=== PATIENT | female | born 1990 | race Caucasian/White ===

== ENCOUNTER 2016-10-18 19:49 | Emergency (ER) | payer OTHER ==
[2016-10-18 20:00] VITALS: BP 111/70; PULSE 100; TEMP 99; BMI 25.0
[2016-10-18] MEDS ORDERED: OXYCODONE/APAP 5/325MG COMBO TABLET PO ONE (21:26)
[2016-10-18] MEDS ORDERED: OXYCODONE/APAP 5/325MG COMBO TABLET ONE (21:31)
--- NOTE | 2016-10-18 21:54 | PDOC ---
History of Present Illness - General Chief Complaint: Wound Stated Complaint: Abscess Boil Time Seen by Provider: 10/18/16 20:41 History Source: Patient Exam Limitations: No Limitations - History of Present Illness Initial Comments: 10/18/16 21:42 CHIEF COMPLAINT: Recurrent pilonidal abscess HISTORY OF PRESENT ILLNESS: Patient is a 26-year-old female, history of pilonidal abscess presents emergency Department with pain and swelling to gluteal cleft which started yesterday. There is a scar noted to same. Patient states she had area drained several years ago but never followed up with surgery for proper removal. Patient is afebrile, pain is 10 out of 10. Past History - Past Medical History Allergies/Adverse Reactions: Allergies Allergy/AdvReac Type Severity Reaction Status Date / Time No Known Allergies Allergy Verified 10/18/16 19:58 Home Medications: Ambulatory Orders No Home Medications 0 dose .ROUTE UTDICT 08/12/13 Cephalexin [Keflex] 500 mg PO TID #30 capsule 10/18/16 Oxycodone HCl/Acetaminophen [Percocet 5-325 mg Tablet] 1 tab PO Q4H #20 tablet MDD 6 10/18/16 Sulfamethoxazole/Trimethoprim [Bactrim Ds -] 1 tab PO BID #20 tablet 10/18/16 - Psycho/Social/Smoking Cessation Hx Anxiety: No Suicidal Ideation: No Smoking History: Former smoker Have you smoked in the past 12 months: No Number of Cigarettes Smoked Daily: 2 Information on smoking cessation initiated: No Hx Alcohol Use: No Substance Use Type: None Review of Systems - Review of Systems Constitutional: No: Symptoms Reported HEENTM: No: Symptoms Reported Respiratory: No: Symptoms reported Cardiac (ROS): No: Symptoms Reported ABD/GI: No: Symptoms Reported : No: Symptoms Reported Musculoskeletal: No: Other Integumentary: Yes: Erythema (erythema, pain and fullness to sacral area) Neurological: No: Symptoms reported Hematologic/Lymphatic: No: Symptoms Reported All Other Systems: Reviewed and Negative *Physical Exam - Vital Signs Last Vital Signs Temp Pulse Resp BP Pulse Ox 99 F 100 H 18 111/70 99 10/18/16 19:59 10/18/16 19:59 10/18/16 19:59 10/18/16 19:59 10/18/16 19:59 - Physical Exam General Appearance: Yes: Appropriately Dressed. No: Apparent Distress Respiratory/Chest: positive: Lungs Clear, Normal Breath Sounds Cardiovascular: positive: Regular Rhythm, Regular Rate Rectal Exam: positive: heme negative stool, normal exam Lymphatic: negative: Adenopathy Integumentary: positive: Erythema (Pain, fullness, induration, erythema and warmth to sacral area, 4 cm in width. ) Neurologic: positive: Alert, Normal Mood/Affect Procedures - Incision and Drainage I&D Site: Bilateral: Other (Pilonidal abscess) Betadine cleansed: Yes Anesthesia: 1% Lidocaine Volume(ml): 5 Blade Size: 11 Iodinated Packin in (24 inches inserted with large external wic) Dressing: Yes ED Treatment Course - Medications Given in the ED: ED Medications Discontinued Medications Generic Name Dose Route Start Last Admin Trade Name Freq PRN Reason Stop Dose Admin Oxycodone/Acetaminophen 1 combo 10/18/16 21:26 10/18/16 21:32 Percocet 5/325 - PO 10/18/16 21:27 1 combo ONCE ONE Administration Medical Decision Making - Medical Decision Making 10/18/16 22:31 A/P: Patient here for evaluation of pilonidal cyst with abscess. Patient has had it in the past and never followed up with surgery I&D performed see procedure note. . Will DC patient home on Bactrim and Keflex, follow-up with surgery return in 48 hours for packing removal. I discussed the physical exam findings and final diagnoses with the patient. I answered all of the patient's questions. The patient was satisfied with the care received and felt comfortable with the discharge plan and treatment plan. The patient will call to arrange follow-up and will return to the Emergency Department with any new, persistent or worsening symptoms. *DC/Admit/Observation/Transfer Diagnosis at time of Disposition: Pilonidal cyst with abscess - Discharge Dispostion Disposition: HOME Condition at time of disposition: Good Admit: No - Prescriptions Prescriptions: Sulfamethoxazole/Trimethoprim [Bactrim Ds -] 1 tab PO BID #20 tablet Cephalexin [Keflex] 500 mg PO TID #30 capsule Oxycodone HCl/Acetaminophen [Percocet 5-325 mg Tablet] 1 tab PO Q4H #20 tablet MDD 6 - Patient Instructions Printed Discharge Instructions: Pilonidal Cyst Additional Instructions: Keep dressing on overnight. Please call tomorrow to follow-up with surgery Complete course of antibiotic therapy as prescribed Return to ED in 2 days for a wound evaluation and pack removal. Return to ED immediately if any signs of infection such as fever, increasing pain, swelling, streaking redness, or if symptoms worsen or any concerns. - Post Discharge Activity Work/School Note: Back to Work
== END 2016-10-18 22:45 | disposition home or self-care (01) ==
LOC: JERFT 19:49
PROC: 0H98XZZ Drainage of Buttock Skin, External Approach (ICD-10-PCS; principal; 2016-10-18)
DX: L05.01 Pilonidal cyst with abscess (principal); Z87.891 Personal history of nicotine dependence
CPT/HCPCS: 10060; 87070; 87205; 99281-25

== ENCOUNTER 2016-10-20 17:47 | Emergency (ER) | payer OTHER ==
[2016-10-20 17:51] VITALS: BP 111/58; PULSE 81; TEMP 98.4; BMI 29.0
--- NOTE | 2016-10-20 18:09 | PDOC ---
Suture Removal/Wound Check HPI - History of Present Illness Chief Complaint: Revisit,Wound Recheck Stated Complaint: Revisit,Wound Recheck Time Seen by Provider: 10/20/16 17:50 History Source: Yes: Patient Exam Limitations: Yes: No Limitations Treated at: [facility] Date of Last ED visit: 10/18/16 - Previous ED Treatment Type of procedure performed on last visit: Yes: I&D of Abscess Tetanus Immunization: Yes: Up to Date Past History - Past Medical History Allergies/Adverse Reactions: Allergies No Known Allergies Allergy (Verified 10/20/16 17:50) Home Medications: Ambulatory Orders No Home Medications 0 dose .ROUTE UTDICT 08/12/13 Cephalexin [Keflex] 500 mg PO TID #30 capsule 10/18/16 Oxycodone HCl/Acetaminophen [Percocet 5-325 mg Tablet] 1 tab PO Q4H #20 tablet MDD 6 10/18/16 Sulfamethoxazole/Trimethoprim [Bactrim Ds -] 1 tab PO BID #20 tablet 10/18/16 General: Yes: no pertinent history Surgical History: Yes: No Surgical History - Social History Smoking Status: Never smoked Number of Ciarettes Per Day: 2 Suture Removal/Wound Check PE - Physical Exam Laceration/Wound Check Symptoms: reports: None Comments: 10/20/16 18:05 packing to be removed from pilonidal that was drained 2 days ago. no redness scant drainage. Current Severity Level: None Maximum Severity Level: Severe Pain Localization: None Comments: 10/20/16 18:07 pilonidal Procedures - Additional Procedures Progress: 10/20/16 18:07 packing removed, scant yellow drainage on the gauze, sterile gauze placed Medical Decision Making - Medical Decision Making 10/20/16 18:08 cc: pilonidal packing removed sterile gauze placed no redness small amount of yellow drainage I have discussed with pt she is to follow with for follow up as pt has had this abscess before. pt agrees and understands that follow up with the surgeon is part of her continued care. 10/20/16 22:17 *DC/Admit/Observation/Transfer Diagnosis at time of Disposition: Visit for wound check - Discharge Dispostion Disposition: HOME Condition at time of disposition: Good - Referrals Referrals: Gael Brewster MD [Staff Physician] - - Patient Instructions Additional Instructions: follow with the general surgeon wash area with antibacterial soap and water and make sure to keep dry only wash once daily
== END 2016-10-20 18:18 | disposition home or self-care (01) ==
LOC: JERFT 17:47
DX: Z48.01 Encounter for change or removal of surgical wound dressing (principal)
CPT/HCPCS: 99281-25